=== PATIENT | female | born 1970 | race Hispanic/Latino ===

== ENCOUNTER 2016-12-22 16:22 | Observation (INO) | payer OTHER ==
[2016-12-22 16:37] VITALS: BP 129/80; PULSE 67; RESP 16; TEMP 98.1; O2SAT 100
[2016-12-22] MEDS ORDERED: Sodium Chloride 0.9% 1,000 ML IV STA ×2 (17:19→20:45)
[2016-12-22] MEDS ORDERED: DiphenhydrAMINE 50 mg/ml Inj IVP STA (17:20)
--- NOTE | 2016-12-22 17:23 | ED PDOC ---
HPI: Headache Time Seen by Provider: 12/22/16 17:08 Chief Complaint (Nursing): Headache Chief Complaint (Provider): Headache History Per: Patient History/Exam Limitations: no limitations Onset/Duration Of Symptoms: Days (x2) Current Symptoms Are (Timing): Still Present Additional Complaint(s): Lisa Temple is a 45 year old female with a history of migraines that presents to the ED with a chief complaint of headache that she has been experiencing for the past week, but has worsened significantly over the past two days. Patient reports that she has been taking Relpax and Advil without relief, and has associated photophobia and nausea, but denies any vomiting or fever. Of Note: patient states that she was hit on the top of the head with a soccer ball at the end of October. Past Medical History Reviewed: Historical Data, Nursing Documentation, Vital Signs Vital Signs: Last Vital Signs Temp 98.1 F 12/22/16 16:34 Pulse 67 12/22/16 16:34 Resp 16 12/22/16 16:34 BP 129/80 12/22/16 16:34 Pulse Ox 100 12/22/16 16:34 - Medical History PMH: Migraine - Family History Family History: States: Unknown Family Hx - Allergies Allergies/Adverse Reactions: Allergies Allergy/AdvReac Type Severity Reaction Status Date / Time Penicillins Allergy RASH Verified 12/22/16 16:33 Review of Systems Constitutional: Negative for: Fever Eyes: Positive for: Other (Photophobia) Gastrointestinal: Positive for: Nausea. Negative for: Vomiting Neurological: Positive for: Headache Physical Exam - Reviewed Nursing Documentation Reviewed: Yes Vital Signs Reviewed: Yes - Physical Exam Appears: Positive for: Non-toxic, No Acute Distress (Patient is wearing sunglasses) Head Exam: Positive for: ATRAUMATIC, NORMOCEPHALIC Skin: Positive for: Normal Color, Warm Eye Exam: Positive for: Normal appearance, EOMI, PERRL Neck: Positive for: Normal, Supple (no neck stiffness) Neurologic/Psych: Positive for: Alert, kennel manager dog track II-XII, Oriented. Negative for: Motor/Sensory Deficits, Aphasia, Facial Droop - ECG O2 Sat by Pulse Oximetry: 100 (RA) Pulse Ox Interpretation: Normal Medical Decision Making Medical Decision Making: Impression: Headache Plan: * CT Head w/o contrast * Urine * NaCl 1000 mLs at 1000 mLs/hr * Benadryl 25 mg IV * Phenergan Inj 25 mg * Reevaluation 18:34 Patient reports feeling better and is resting comfortably. 18:58 Patient states that she has a "funny feeling" in her throat and has a metallic taste in her mouth. Pharynx examined, is clear, handing secretions, no erythema , or swelling. Uvula midline. 19:00 Patient signed over to Dr. Jimbo Troy MD pending CT Scan. Scribe Attestation: Documented by Annalisa Oneil, acting as a scribe for Gertrude Michelle MD. Provider Scribe Attestation: All medical record entries made by the Scribe were at my direction and personally dictated by me. I have reviewed the chart and agree that the record accurately reflects my personal performance of the history, physical exam, medical decision making, and the department course for this patient. I have also personally directed, reviewed, and agree with the discharge instructions and disposition. Disposition - Clinical Impression Clinical Impression: Headache - Patient ED Disposition Is Patient to be Admitted: Transfer of Care - Disposition Disposition Time: 19:00 Condition: STABLE Forms: [employer] (Nepali) Patient Signed Over To: Jimbo Troy
[2016-12-22] MEDS ORDERED: DiphenhydrAMINE 50 mg/ml Inj ONE (17:37)
--- NOTE | 2016-12-22 19:27 | ED PDOC ---
- ECG O2 Sat by Pulse Oximetry: 100 (RA) Medical Decision Making Medical Decision Makin:00 Patient signed over to me by Dr. Gertrude Michelle MD pending CT Scan. CT Head w/o Contrast FINDINGS: Brain: No intracranial hemorrhage. No significant white matter disease. No evidence of evolved territorial infarct. No mass effect or midline shift. Ventricles: Unremarkable. No ventriculomegaly. Bones/joints: No acute osseous abnormality. Soft tissues: No soft tissue swelling. Sinuses: Visualized paranasal sinuses are clear. Mastoid air cells: Mastoid air cells are well-aerated. IMPRESSION: No acute findings. 20:45 Patient will be placed in ED Obs, as she is not responding well to treatment. 22:20 Patient states she is feeling better, no longer dizzy and able to walk. Will f/ u w/ Dr. Lazcano, neurology. Will d/c home. Return precautions given. Scribe Attestation: Documented by Annalisa Oneil, acting as a scribe for Jimbo Troy MD. Provider Scribe Attestation: All medical record entries made by the Scribe were at my direction and personally dictated by me. I have reviewed the chart and agree that the record accurately reflects my personal performance of the history, physical exam, medical decision making, and the department course for this patient. I have also personally directed, reviewed, and agree with the discharge instructions and disposition. Disposition - Clinical Impression Clinical Impression: Headache, Dizziness - POA Present On Arrival: None - Disposition Disposition: Routine/Home Disposition Time: 22:25 Condition: IMPROVED ED OBSERVATION Date of observation admission: 12/22/16 Time of observation admission: 20:45 - Observation admission statement Patient is being placed in observation because:: unresponsiveness to treatment. - Goals of Observation Goals of observation are:: improvement in symptoms. - Progress Note Progress Note: 12/22/16 20:45 Ordered Antivert 50 mg PO, Reglan 10 mg IV, and NaCl 1000 mLs at 1000 mLs/hr for patient.
--- NOTE | 2016-12-23 08:30 | CT ---
PROCEDURE: CT HEAD WITHOUT CONTRAST. HISTORY: Migraine COMPARISON: None available. TECHNIQUE: Axial computed tomography images were obtained through the head/brain without intravenous contrast. Coronal and sagittal reconstructed images. Fifth Radiation dose: Total exam DLP = 735.12 MGy-cm. This CT exam was performed using one or more of the following dose reduction techniques: Automated exposure control, adjustment of the mA and/or kV according to patient size, and/or use of iterative reconstruction technique. FINDINGS: HEMORRHAGE: No intracranial hemorrhage. BRAIN: No mass effect or edema. No atrophy or chronic microvascular ischemic changes. VENTRICLES: Unremarkable. No hydrocephalus. CALVARIUM: Unremarkable. PARANASAL SINUSES: Unremarkable as visualized. No significant inflammatory changes. MASTOID AIR CELLS: Unremarkable as visualized. No inflammatory changes. OTHER FINDINGS: None. IMPRESSION: No acute intracranial abnormalities. No significant findings to account for the clinical presentation. Concordant results (preliminary interpretation) provided by [facility]. Procedure Completed: 19:25 Preliminary ([facility]) Report: Dictated and Authenticated: 20:12 Final Interpretation: 08:29. December 23, 2016.
== END 2016-12-22 22:23 | disposition home or self-care (01) ==
LOC: H.ER 16:22 → H.EROBSV 20:45
PROVIDERS: ADMIT Emergency Medicine; ATTEND Emergency Medicine
DX: R51 Headache (principal); R42 Dizziness and giddiness; Z88.0 Allergy status to penicillin
CPT/HCPCS: 70450; 81025; 96361; 96374; 96375; 99284; G0378; J1200; J2550; J2765; J7040